=== PATIENT | male | born 1975 | race Caucasian/White ===

== ENCOUNTER 2022-11-25 20:12 | Outpatient (CLI) | payer OTHER, SELFPAY ==
--- NOTE | 2022-12-03 09:56 | W.PM.SLEEP ---
Sleep Study Details Details Interpreting Provider: Linda Date of Sleep Study: 11/25/22 Sleep Study Details: STUDY TYPE:? Hospital ? BMI:? 36.2 ORDERING PROVIDER:? Chantel INDICATION:? Concerns about sleep apnea ? SLEEP SUMMARY:? Total sleep time 364 minutes, efficiency 79.6, REM latency 40.5, arousal index 7.1 RESPIRATORY SUMMARY:? Mean oxygen awake 94, asleep 93, low oxygen 87, 0.2 minutes oxygen between 80 and 88% AHI 2.3, RDI 5.1 , supine REM AHI 11.5 PERIODIC LIMB MOVEMENTS OF SLEEP:? None CARDIAC:? Awake 55, asleep 49. No arrhythmias noted IMPRESSION:? Mild obstructive sleep apnea with an RDI of 5.1. The overall AHI is within normal limits at 2.3. There was supine REM dependency RECOMMENDATION: The patient is symptomatic treatment could consist of AutoSet CPAP, dental appliance weight loss and/or airway expansion surgery.
== END 2022-11-25 20:13 | disposition home or self-care (01) ==
PROVIDERS: Visit Provider Otolaryngology
DX: G47.33 Obstructive sleep apnea (adult) (pediatric) (principal)
CPT/HCPCS: 95810